=== PATIENT | male | born 1995 | race Caucasian/White ===

== ENCOUNTER 2021-02-14 17:54 | Emergency (ER) | payer BC, SELFPAY ==
[2021-02-14 18:07] LABS: Bilirubin Negative (Negative); Blood, Urine Negative (Negative); Clarity Clear (Clear); Glucose, Urine (Dipstick) Negative (Negative); Ketone, Urine Negative (Negative); Leukocyte Negative (Negative); Nitrite Negative (Negative); Protein, Urine (Dipstick) Negative (Neg-Trace); Urobilinogen 0.2 mg/dL (Less than 2)
[2021-02-14] MEDS ORDERED: traMADol HCl 50 MG TAB ONE (19:29)
[2021-02-14] MEDS ORDERED: Ibuprofen 800 MG TAB ONE (19:29)
== END 2021-02-14 19:37 | disposition home or self-care (01) ==
LOC: BURERS 17:54
DX: M54.5 Low back pain (principal); F17.210 Nicotine dependence, cigarettes, uncomplicated
CPT/HCPCS: 74176; 81003

== ENCOUNTER 2022-02-13 13:25 | Emergency (ER) | payer SELFPAY ==
[2022-02-13] MEDS ORDERED: Lidocaine 1% PF 5 ML VIAL FS ONE (13:26)
== END 2022-02-13 15:41 | disposition home or self-care (01) ==
LOC: BURERS 13:25
DX: S91.115A Laceration without foreign body of left lesser toe(s) without damage to nail, initial encounter (principal); F17.210 Nicotine dependence, cigarettes, uncomplicated; W26.8XXA Contact with other sharp object(s), not elsewhere classified, initial encounter
CPT/HCPCS: 12001

== ENCOUNTER 2023-10-28 06:20 | Emergency (ER) | payer SELFPAY ==
[2023-10-28] MEDS ORDERED: Ibuprofen 800 MG TAB ONE (07:01)
[2023-10-28] MEDS ORDERED: Sulfameth/Trimethoprim DS 800-160mg TAB ONE (07:01)
== END 2023-10-28 07:08 | disposition home or self-care (01) ==
LOC: BURERS 06:20
DX: S90.424A Blister (nonthermal), right lesser toe(s), initial encounter (principal); L03.116 Cellulitis of left lower limb; F17.210 Nicotine dependence, cigarettes, uncomplicated
CPT/HCPCS: 99283